=== PATIENT | male | born 1955 | race Caucasian/White ===

== ENCOUNTER 2017-04-03 14:23 | Emergency (ER) | payer OTHER ==
[~2017-04-03] VITALS: Ht 172.7 cm; Wt 104.3 kg
== END 2017-04-03 16:11 | disposition home or self-care (01) ==
LOC: ED 14:23
DX: I82.411 Acute embolism and thrombosis of right femoral vein (principal)

== ENCOUNTER → 2020-03-05 | Outpatient (CLI) | payer OTHER | END | disposition home or self-care (01) | LOC: COVID19 11:05 | PROVIDERS: ATTEND Family Medicine | DX: U07.1 COVID-19 (principal) ==